=== PATIENT | female | born 1985 | race Caucasian/White ===

== ENCOUNTER 2018-12-02 11:06 | Emergency (ER) | payer OTHER ==
[2018-12-02] MEDS ORDERED: NS 1,000 ML IV ONE (11:32)
--- NOTE | 2018-12-02 12:04 | EDPHY ---
H & P Stated Complaint: Pt. with generalized abd pain since Sat.,denies n/v/d,just pain Time Seen by Provider: 12/02/18 11:12 HPI/ROS: This patient presents with abdominal pain of 2 days duration. She explains that she was playing the piano on Sunday, 2 days prior to arrival when she stood up she developed abdominal pain that she 1st noticed in the upper belly pointing to the epigastrium on reports that since that time she has had constant abdominal pain that has spread to the general right-sided abdominal area most notable at the periumbilical region-right mid belly. The pain worsens with movement. She feels improved when she is lying down bent at the waist with more pain with standing up straight and walking. She reports mild bloating associated with this. She describes the pain as achy with occasional sharp pains of 5/10 intensity. She does not recall having this type of pain before. She has no other significant associated symptoms except urinary frequency. She came in by private vehicle for evaluation. ROS: Constitutional: No fevers or chills. No fatigue. HEENT: She had URI 2 weeks ago that has resolved with no current URI symptoms or other complaints Pulmonary: No significant dyspnea or cough. Cardiovascular: No lightheadedness. No chest pain. GI: Mild bloating. Normal bowel movements. No nausea vomiting. She maintains normal appetite. : Somewhat irregular menses she reports for last menstrual. Was 2 and half weeks ago with normal flow. She has mild urinary frequency but no other urinary symptoms. No vaginal discharge. No genital lesions. Integumentary: No rash. No pallor 10 point review of symptoms is performed and otherwise negative with exception of pertinent positives and negatives listed in HPI and ROS Source: Patient Exam Limitations: No limitations - Personal History LMP (Females 10-55): 15-21 Days Ago - Medical/Surgical History Hx Asthma: No Hx Chronic Respiratory Disease: No Hx Diabetes: No Hx Cardiac Disease: No Hx Renal Disease: No Hx Cirrhosis: No Hx Alcoholism: No Hx HIV/AIDS: No Hx Splenectomy or Spleen Trauma: No Other PMH: Med hx-thyroid,TSS @16yrs of age,kidney infection. Surg- - Family History Significant Family History: No pertinent family hx - Social History Smoking Status: Never smoked Alcohol Use: Occasionally Drug Use: None - Physical Exam Exam: General Appearance: Alert, no distress. Eyes: Pupils equal and round no pallor or injection. ENT, Mouth: Mucous membranes moist. Respiratory: There are no retractions, lungs are clear to auscultation. Cardiovascular: Regular rate and rhythm. Gastrointestinal: Normoactive, soft, moderate right-sided tenderness spanning from right upper quadrant to right lower quadrant. She also has mild suprapubic tenderness. Back: Mild right-sided CVA discomfort with percussion. No CVA tenderness in the left Neurological: GCS 15 Skin: Warm and dry, no rashes. Musculoskeletal: Neck is supple nontender. Extremities are symmetrical, full range of motion. Psychiatric: Mood and affect are normal DIFFERENTIAL DIAGNOSIS: After history and physical exam differential diagnosis was considered for ovarian cyst rupture, cholecystitis, hepatitis, UTI, ureteral stone, ectopic , IBS, bowel obstruction, constipation, GERD Constitutional: Initial Vital Signs Temperature (C) 36.7 C 12/02/18 11:16 Heart Rate 80 12/02/18 11:16 Respiratory Rate 16 12/02/18 11:16 Blood Pressure 124/83 H 12/02/18 11:16 O2 Sat (%) 97 12/02/18 11:16 O2 Delivery Mode Room Air Allergies/Adverse Reactions: codeine Allergy (Verified 12/02/18 11:15) Home Medications: Medication Instructions Recorded Docusate Sodium [Colace 100 MG (*)] 100 mg PO BID #20 cap 12/02/18 Hyoscyamine Sulfate [Levsin, 0.125 - 0.25 mg SL Q6 PRN #20 tab 12/02/18 Hyomax-Sl 0.125 mg (*)] Synthroid 75 mcg (*) 12/02/18 Medical Decision Making - Diagnostics Imaging Results: CT abdomen pelvis with IV contrast to rule out appendicitis-no evidence of appendicitis. Patient does have some constipation right-sided more than left and bilateral renal cysts with one 8 mm round lesion in the left kidney that is more dense than a typical cyst per radiologist. Imaging: Discussed imaging studies w/ house calls nurse practitioner Radiologist ED Course/Re-evaluation: IV normal saline bolus Patient declined analgesics initially but then accepted Toradol 15 mg IV with partial relief of pain down to 3 or 4/10. After the patient's pelvic ultrasound, I counseled regarding findings-no significant abnormalities and re-examined her belly. At 13 20 the patient has positive Rovsing sign, psoas sign and some rebound tenderness in the right lower quadrant concerning for potential appendicitis. We discussed options of ultrasound looking specific for appendix versus CT patient agrees to proceed with CT abdomen pelvis CT abdomen pelvis negative for appendicitis. Patient has constipation and incidental finding of left-sided 8 mm round lesion knee kidney warranting further follow-up question dense cyst versus carcinoma I counseled patient regarding her CT findings in some detail. We ruled out ectopic , UTI and appendicitis today's visit. I suspect that she has a combination of mittelschmerz and some constipation causing her right-sided pain and counseled regarding this. Will plan to treat her with Levsin ibuprofen Tylenol. Also recommended Colace stool softener for constipation of follow up with primary care physician for any ongoing symptoms. Provided Urology phone number for follow-up and stress the importance of follow-up to pursue further imaging regarding the left kidney lesion. The patient understands and also understands the need to return emergency department should she develop any worsening symptoms despite the treatment plan. - Data Points Medications Given: Discontinued Medications Sodium Chloride (Ns) 1,000 mls @ 0 mls/hr IV EDNOW ONE; Wide Open PRN Reason: Protocol Stop: 12/02/18 11:33 Last Admin: 12/02/18 12:00 Dose: 1,000 mls Ketorolac Tromethamine (Toradol) 15 mg IVP EDNOW ONE Stop: 12/02/18 12:21 Last Admin: 12/02/18 12:26 Dose: 15 mg Point of Care Test Results: CBC CBC Collection Date 12/02/18 CBC Collection Time 11:43 WBC 4.82 RBC 5.21 HGB 15.9 HCT 46.8 PLT 345 Neut # 2.83 Neut 58.7 LYMPH # 1.31 LYMPH 27.2 MCV 89.8 Chemistry 12/02/18 11:52 POC Sodium 141 mEq/L mEq/L (135-145) POC Potassium 3.7 mEq/L mEq/L (3.3-5.0) POC Chloride 107.0 mEq/L mEq/L (97-110) POC Total CO2 27 mEq/L mEq/L (22-31) POC BUN 9 mg/dL mg/dL (7-23) POC Creatinine 0.8 mg/dL mg/dL (0.6-1.0) POC Glucose 94 mg/dL mg/dL (70-100) POC Calcium 9.1 mg/dL mg/dL (8.5-10.4) POC Total Bilirubin 1.7 mg/dL H mg/dL (0.1-1.4) POC AST 24 IU/L IU/L (14-46) POC ALT 23 IU/L IU/L (9-52) POC Alk Phosphatase 76 IU/L IU/L (38-126) POC Total Protein 8.0 g/dL g/dL (6.3-8.2) POC Albumin 4.3 g/dL g/dL (3.5-5.0) Urine Collection Date 12/02/18 Collection Time 11:36 HCG Results Negative Urine Dip Collection Date 12/02/18 Collection Time 11:36 Specific [place] (1.002-1.030) 1.015 PH (5.0-7.5) 6.5 Leukocytes (Negative) Negative Nitrites (Negative) Negative Protein (Negative) Negative Glucose (Negative) Negative Ketones (Negative) Negative Urobilnogen (0.2-1.0 EU) 0.2 Bilirubin (Negative) Negative Blood (Negative) Negative Departure - Departure Disposition: Home, Routine, Self-Care Clinical Impression: Mittelschmerz, Renal lesion, Constipation Condition: Good Instructions: Hyoscyamine (By mouth), Constipation (ED), High Fiber Diet (ED), Pelvic Pain in Women (ED) Additional Instructions: Diagnoses: 1. Mittelschmerz (midcycle ovarian pain) 2. Constipation 3. Left renal lesion Plan: Plenty fluids, for in fiber Colace stool softener for the next 7-10 days daily Ibuprofen Tylenol for pain Levsin in addition if needed for cramping pain Call the urologist-Dr. Mccauley to make follow-up appointment for further evaluation of her left renal lesion. This will likely involve MRI Return for any significant worsening of your symptoms despite treatment plan Referrals: NONE *PRIMARY CARE P,. [Primary Care Provider] - As per Instructions Ariana Carlisle MD [Medical Doctor] - As per Instructions Tono Mccauley MD [Medical Doctor] - As per Instructions Prescriptions: Docusate Sodium [Colace 100 MG (*)] 100 mg PO BID #20 cap Hyoscyamine Sulfate [Levsin, Hyomax-Sl 0.125 mg (*)] 0.125 - 0.25 mg SL Q6 PRN # 20 tab PRN Reason: abdominal cramping
[2018-12-02] MEDS ORDERED: KETOROLAC 15 MG/1 ML SDV IVP ONE (12:20)
[2018-12-02] MEDS ORDERED: IOPAMIDOL (ISOVUE-300) 100 ML BTL ONE (13:31)
[2018-12-02 14:02] VITALS: BP 123/89
== END 2018-12-02 14:30 | disposition home or self-care (01) ==
LOC: CED 11:06
DX: N94.0 Mittelschmerz (principal); N28.9 Disorder of kidney and ureter, unspecified; K59.00 Constipation, unspecified; E86.9 Volume depletion, unspecified
CPT/HCPCS: 74177-PO; 76856-PO; 80053-ER; 96361-ER; 96374-ER; J1885; Q9967